=== PATIENT | male | born 1950 | race Caucasian/White ===

== ENCOUNTER 2018-04-02 05:35 | Emergency (ER) | payer BC, MEDICARE ==
[~2018-04-02] VITALS: Ht 175.3 cm; Wt 96.8 kg
[~2018-04-02 05:35] MED LIST: ASPIRIN 81M81 MG/TA2 PO; BRILINTA90 MG PO; BUSPAR DIVIDOSE15 MG PO; CELEXA 20MG20 MG/TAB PO; CEPHALEXIN500 M1 PO; COZAAR100 MG PO; ERGOCALCIFER50000 IU PO; FLOMAX 0.40.4 MG/CAP PO; GLUCOPHAGE500 MG/TAB PO; K-DUR20 MEQ PO; K-TAB20 PO; LASIX 40MG TABL40 MG PO; LIPITOR 10MG10 MG PO; NEURONTIN600 MG/TAB PO; PEPCID 20MG TAB20 MG PO; PHENTERMINE15 MG PO; ZEBETA 5MG5 MG PO
[2018-04-02 05:42] VITALS: TEMP 97.8
[2018-04-02 06:09] LABS: BASO # 0.1 (0.0-0.2); BASO % 0.8 % (0.0-2.0); EOS # 0.3 (0.0-0.7); EOS % 4.9 % (0-4.0); GRAN # 3.1 (1.4-6.5); GRAN % 48.5 % (42.2-75.2); HEMOGLOBIN 13.7 g/dl (13.5-18.0); LYMPH # 2.1 (1.2-3.4); LYMPH % 32.5 % (20.0-51.0); MEAN CELL VOLUME 91 fl (80.0-100.0); MEAN CORPUSCULAR HEMOGLOBIN 30 pg (27.0-31.0); MEAN CORPUSCULAR HGB CONC 33 g/dl (33.0-37.0); MEAN PLATELET VOLUME 11.1 fl (7.4-10.4); MONO # 0.8 (0.1-0.6); MONO % 12.7 % (1.7-9.3); PLATELET COUNT 229 K/mm3 (130-400)
[2018-04-02 06:22] LABS: ALANINE AMINOTRANSFERASE 45 U/L (21-72); ALBUMIN 4.3 gm/dL (3.5-5.0); ALKALINE PHOSPHATASE 109 U/L (50-136); ANION GAP 7 mmol/L (7-16); AST,SGOT 34 U/L (15-37); BILIRUBIN,TOTAL 0.4 mg/dL (0.0-1.0); BLOOD UREA NITROGEN 14 mg/dL (9-20); CALCIUM 9.3 mg/dL (8.4-10.2); CARBON DIOXIDE 26 mmol/L (22-30); CHLORIDE 108 mmol/L (98-107); CREATININE, serum 0.91 mg/dL (0.66-1.25); GLUCOSE 135 mg/dL (74-106); POTASSIUM 4.2 mmol/L (3.4-5.0); SODIUM 141 mmol/L (137-145); TOTAL PROTEIN 7.5 gm/dL (6.4-8.2)
[2018-04-02 06:34] LABS: TROPONIN-I < 0.012 ng/mL (0.000-0.034)
[2018-04-02] MEDS ORDERED: VITAMIN D 50,1.25 MG PO (06:52)
[2018-04-02 07:39] VITALS: BP 156/84; PULSE 68
== END 2018-04-02 07:41 | disposition home or self-care (01) ==
LOC: COL.ER 05:35
PROVIDERS: Emergency Medicine
DX: T82.119A Breakdown (mechanical) of unspecified cardiac electronic device, initial encounter (principal); I42.9 Cardiomyopathy, unspecified; I10 Essential (primary) hypertension; N40.0 Benign prostatic hyperplasia without lower urinary tract symptoms; F17.210 Nicotine dependence, cigarettes, uncomplicated; Z95.0 Presence of cardiac pacemaker; Z79.82 Long term (current) use of aspirin

== ENCOUNTER 2018-04-11 16:35 | Emergency (ER) | payer BC, MEDICARE ==
[~2018-04-11] VITALS: Ht 177.8 cm; Wt 97.3 kg
[~2018-04-11 16:35] MED LIST changes: +VITAMIN D 50,1.25 MG PO
[2018-04-11 16:44] VITALS: TEMP 97.8
[2018-04-11 17:30] LABS: BASO % 0.4 % (0.0-2.0); EOS # 0.3 (0.0-0.7); EOS % 4.1 % (0-4.0); GRAN # 4.1 (1.4-6.5); GRAN % 55.9 % (42.2-75.2); HEMATOCRIT 38.8 % (42.0-52.0); HEMOGLOBIN 13.2 g/dl (13.5-18.0); LYMPH % 27.4 % (20.0-51.0); MEAN CELL VOLUME 91 fl (80.0-100.0); MEAN CORPUSCULAR HEMOGLOBIN 31 pg (27.0-31.0); MEAN CORPUSCULAR HGB CONC 34 g/dl (33.0-37.0); MEAN PLATELET VOLUME 11.1 fl (7.4-10.4); MONO # 0.9 (0.1-0.6); MONO % 11.7 % (1.7-9.3); PLATELET COUNT 209 K/mm3 (130-400); RED BLOOD COUNT 4.27 M/mm3 (4.20-5.60); REDCELL DISTRIBUTION WIDTH-CV 13.2 % (11.5-14.5)
[2018-04-11 17:41] LABS: ALANINE AMINOTRANSFERASE 52 U/L (21-72); ALBUMIN 4.3 gm/dL (3.5-5.0); ALKALINE PHOSPHATASE 111 U/L (50-136); ANION GAP 6 mmol/L (7-16); AST,SGOT 35 U/L (15-37); BILIRUBIN,TOTAL 0.5 mg/dL (0.0-1.0); BLOOD UREA NITROGEN 21 mg/dL (9-20); CALCIUM 9.4 mg/dL (8.4-10.2); CARBON DIOXIDE 28 mmol/L (22-30); CHLORIDE 104 mmol/L (98-107); GLUCOSE 89 mg/dL (74-106); POTASSIUM 4.5 mmol/L (3.4-5.0); SODIUM 138 mmol/L (137-145); TOTAL PROTEIN 7.5 gm/dL (6.4-8.2)
[2018-04-11 17:53] LABS: TROPONIN-I < 0.012 ng/mL (0.000-0.034)
[2018-04-11 18:09] VITALS: BP 161/82; PULSE 70
== END 2018-04-11 18:09 | disposition home or self-care (01) ==
LOC: COL.ER 16:35
PROVIDERS: Emergency Medicine
DX: T82.111A Breakdown (mechanical) of cardiac pulse generator (battery), initial encounter (principal); I10 Essential (primary) hypertension; I42.9 Cardiomyopathy, unspecified; Z87.891 Personal history of nicotine dependence

== ENCOUNTER → 2019-05-13 | Outpatient (CLI) | payer BC, MEDICARE | LOC: COL.RAD 05-12 13:00 | DX: Z01.812 Encounter for preprocedural laboratory examination (principal); I65.23 Occlusion and stenosis of bilateral carotid arteries; I65.01 Occlusion and stenosis of right vertebral artery | CPT/HCPCS: Q9967 ==

== ENCOUNTER 2021-08-08 08:54 | Day surgery (SDC) | payer BC, MEDICARE ==
[~2021-08-08] VITALS: Ht 177.8 cm; Wt 103.9 kg
[2021-08-08] VITALS (9 sets, daily range): BP systolic 140–186; BP diastolic 57–97; PULSE 70–75; TEMP 97.3–98.4
[~2021-08-08 08:54] MED LIST changes: +LASIX 20MG TABL20 MG PO; -ZEBETA 5MG5 MG PO; +ZEBETA10 MG PO
[2021-08-08 09:31] LABS: HEMATOCRIT 39.3 % (42.0-52.0); HEMOGLOBIN 13.3 g/dl (13.5-18.0); MEAN CELL VOLUME 89 fl (80.0-100.0); MEAN CORPUSCULAR HEMOGLOBIN 30 pg (27-31); MEAN CORPUSCULAR HGB CONC 34 g/dl (33.0-37.0); MEAN PLATELET VOLUME 10.8 fl (7.4-10.4); PLATELET COUNT 250 K/mm3 (130-400); RED BLOOD COUNT 4.43 M/mm3 (4.20-5.60); REDCELL DISTRIBUTION WIDTH-CV 13.2 % (11.5-14.5)
[2021-08-08 09:37] LABS: PROTHROMBIN TIME 11.5 SECONDS (9.7-12.8)
[2021-08-08 09:40] LABS: PARTIAL THROMBOPLASTIN TIME 29.9 SECONDS (26.0-37.0)
[2021-08-08 09:52] LABS: CALCIUM 9.4 mg/dL (8.4-10.2); CREATININE, serum 1.27 mg/dL (0.72-1.25); POTASSIUM 4.4 mmol/L (3.5-4.5)
[2021-08-08] MEDS ORDERED: NEURONTIN600 MG/TAB PO (10:02)
[2021-08-08] MEDS ORDERED: GLUCOPHAGE1000 MG PO (10:04)
--- NOTE | 2021-08-08 10:54 | NUR ---
See merge for all medication times, and intra/post times.
--- NOTE | 2021-08-08 12:28 | NUR ---
Report received pt to transfer to ICU.
--- NOTE | 2021-08-08 12:35 | NUR ---
PATIENT RECIEVED TO FLOOR FROM [employer] IN STABLE CONDITION. AWAKE, A&O X4. C/O MILD CHEST PAIN UPON ARRIVAL, ORDERS RECIEVED. VITALS WNL AT THIS TIME. LIGHT FLUID AND FOODS GIVEN UNTIL PATIENT FEELS READY TO PROGRESS DIET. RIGHT RADIAL PRESSURE BAND PRESENT, WILL CONT TO MONITOR AND CARRY OUT TASKS ORDERED FOR EVENTUAL REMOVAL. SENSATION INTACT ABOVE AND BELOW BAND.
--- NOTE | 2021-08-08 17:27 | NUR ---
PATIENT RADIAL INFLATION BAND WAS RELEASED OF 2-3 MLS OF AIR EVERY 15-30 MIN UNTIL ALL 14MLS OF AIR WERE DEFLATED. SITE LOOKS WELL WITH NO SIGNS OF BLEEDING. SMALL HEMATOMA PROXIMAL TO INSERTION SITE NOTED. SITE CLEANED AND DRESSED WITH GAUZE AND BANDAID.
--- NOTE | 2021-08-08 21:21 | NUR ---
PATIENT DOING WELL TONIGHT. ALERT AND ORIENTED. WAS AT BEDSIDE. R RADIAL SITE CDI WITH GAUZE AND BANDAID. SMALL HEMATOMA NOTED PROXIMAL TO PUNCTURE SITE. DENIES PAIN. DENIES NAUSEA. TOLERATED 100% OF DINNER. TELE IN PLACE. INT L FA PATENT AND FLUSHED WITHOUT ISSUES. HS MEDICATIONS REVIEWED WITH PATIENT AND HIS AND WERE ADMINISTERED WITHOUT ISSUE. CURRENTLY RESTING IN BED. CALL LIGHT WITHIN REACH.
[2021-08-09 04:26] VITALS: BP 126/66; PULSE 70; TEMP 98.1
[2021-08-09 06:57] LABS: BASO % 0.2 % (0.0-2.0); EOS # 0.4 K/mm3 (0.0-0.7); EOS % 4.2 % (0.0-4.0); GRAN # 5.9 K/mm3 (1.4-6.5); GRAN % 61.8 % (42.2-75.2); HEMOGLOBIN 12.2 g/dl (13.5-18.0); LYMPH # 2.2 K/mm3 (1.2-3.4); LYMPH % 22.9 % (20.0-51.0); MEAN CELL VOLUME 90 fl (80.0-100.0); MEAN CORPUSCULAR HEMOGLOBIN 30 pg (27-31); MEAN CORPUSCULAR HGB CONC 33 g/dl (33.0-37.0); MEAN PLATELET VOLUME 11.1 fl (7.4-10.4); MONO % 10.5 % (1.7-9.3); PLATELET COUNT 217 K/mm3 (130-400); RED BLOOD COUNT 4.08 M/mm3 (4.20-5.60); REDCELL DISTRIBUTION WIDTH-CV 13.4 % (11.5-14.5)
[2021-08-09 07:01] LABS: HEMATOCRIT 36.8 % (42.0-52.0)
--- NOTE | 2021-08-09 07:03 | NUR ---
Patient laying in bed, A&Ox4. VSS. IV CDI. RT radial site CDI. Denies pain and discomfort. Independent in the room. No further needs expressed. Call light within reach
[2021-08-09 07:19] LABS: CALCIUM 8.7 mg/dL (8.4-10.2); CREATININE, serum 1.2 mg/dL (0.72-1.25); POTASSIUM 4.1 mmol/L (3.5-4.5)
[2021-08-09 07:32] VITALS: BP 118/58; PULSE 70; TEMP 97.3
--- NOTE | 2021-08-09 08:58 | NUR ---
Agree with student nurses assessment of the patient
[2021-08-09] MEDS ORDERED: LIPITOR 80MG80 MG PO (10:07)
[2021-08-09] MEDS ORDERED: NITRO-DUR0.4 MG/PAT TD (10:07)
--- NOTE | 2021-08-09 10:45 | NUR ---
Discharge paperwork reviewed with the patient and . Patient verbalized an understanding to follow the doctors orders. IV removed by student nurse, tip intact. Patient ambulated independently to patient entrance. No further needs expressed
--- NOTE | 2021-08-09 12:46 | NUR ---
Primary nurse was assisted with [id number] patient care by [employer] student Edna Power and [facility] instructor Bhavana Del Rosario MSN, RN
== END 2021-08-09 10:45 | disposition home or self-care (01) ==
LOC: COL.CAR 08:54 → MEDICAL 13:05 → COL.CAR 08-09 10:45
PROVIDERS: Internal Medicine Cardiovascular Disease
DX: I25.110 Atherosclerotic heart disease of native coronary artery with unstable angina pectoris (principal); I11.0 Hypertensive heart disease with heart failure; I50.9 Heart failure, unspecified; I42.9 Cardiomyopathy, unspecified; E78.5 Hyperlipidemia, unspecified; Z95.5 Presence of coronary angioplasty implant and graft
CPT/HCPCS: OP; C1725; C1769; C1874; C1887; C9600; J1644; J2250; J3010

== ENCOUNTER 2023-02-11 10:05 | Emergency (ER) | payer BC, MEDICARE ==
[~2023-02-11] VITALS: Ht 175.3 cm; Wt 100.0 kg
[~2023-02-11 10:05] MED LIST changes: +GLUCOPHAGE1000 MG PO; +LIPITOR 80MG80 MG PO; +NITRO-DUR0.4 MG/PAT TD
[2023-02-11 10:11] VITALS: TEMP 98.1
[2023-02-11 10:49] LABS: BASO % 0.5 % (0.0-2.0); EOS # 0.2 K/mm3 (0.0-0.7); EOS % 3.7 % (0.0-4.0); GRAN # 3.9 K/mm3 (1.4-6.5); GRAN % 64.9 % (42.2-75.2); HEMATOCRIT 40.2 % (42.0-52.0); HEMOGLOBIN 13.2 g/dl (13.5-18.0); LYMPH # 1.3 K/mm3 (1.2-3.4); LYMPH % 21.6 % (20.0-51.0); MEAN CELL VOLUME 92 fl (80.0-100.0); MEAN CORPUSCULAR HEMOGLOBIN 30 pg (27-31); MEAN CORPUSCULAR HGB CONC 33 g/dl (33.0-37.0); MONO # 0.5 K/mm3 (0.1-0.6); MONO % 8.5 % (1.7-9.3); PLATELET COUNT 258 K/mm3 (130-400); RED BLOOD COUNT 4.37 M/mm3 (4.20-5.60); REDCELL DISTRIBUTION WIDTH-CV 14.2 % (11.5-14.5)
[2023-02-11 11:02] LABS: ALBUMIN 3.7 gm/dL (3.4-4.8); BILIRUBIN,TOTAL 0.6 mg/dL (0.2-1.2); CALCIUM 9.2 mg/dL (8.4-10.2); CREATININE, serum 1.46 mg/dL (0.72-1.25); TOTAL PROTEIN 6.9 gm/dL (6.2-8.1); TROPONIN-I 0.022 ng/mL (0.00-0.033)
[2023-02-11 11:56] VITALS: BP 123/70; PULSE 69
== END 2023-02-11 12:10 | disposition home or self-care (01) ==
LOC: COL.ER 10:05
PROVIDERS: Emergency Medicine
DX: E87.5 Hyperkalemia (principal); E11.22 Type 2 diabetes mellitus with diabetic chronic kidney disease; N18.9 Chronic kidney disease, unspecified